=== PATIENT | female | born 2000 | race Caucasian/White ===

== ENCOUNTER 2023-11-23 05:36 | Day surgery (SDC) | payer BC, OTHER ==
[2023-11-17 16:26] LABS: BASOPHILS % (AUTO) 0.3 % (0-1); EOSINOPHILS # (AUTO) 0.1 X10'3 (0-0.9); EOSINOPHILS % (AUTO) 0.9 % (0-6); LYMPHOCYTES # (AUTO) 3.2 X10'3 (1.1-4.8); LYMPHOCYTES % (AUTO) 33.5 % (21-51); MEAN CORPUSCULAR HEMOGLOBIN 26.8 PG (27.0-31.0); MEAN CORPUSCULAR HGB CONC 33.5 g/dL (33.0-36.5); MONOCYTES # (AUTO) 0.6 X10'3 (0-0.9); MONOCYTES % (AUTO) 6.3 % (2-12); NEUTROPHILS # (AUTO) 5.6 X10'3 (1.8-7.7); PRE OP HEMATOCRIT 41.3 % (35.0-45.0); PRE OP HEMOGLOBIN 13.8 g/dL (12.0-16.0); PRE OP PLATELET COUNT 282 X10'3 (140-440); PRE OP WHITE BLOOD COUNT 9.5 10'3 (4.8-10.8); RED BLOOD COUNT 5.16 X10'6 (4.20-5.60); RED CELL DISTRIBUTION WIDTH 14.1 % (11.5-14.5)
[2023-11-17 16:38] LABS: ALBUMIN 4.1 G/DL (3.4-5.0); ALBUMIN/GLOBULIN RATIO 1.2 (1.1-1.5); ALKALINE PHOSPHATASE 40 IU/L (46-116); BLOOD UREA NITROGEN 11 MG/DL (7-18); BUN/CREATININE RATIO 16.7 (10.0-20.0); CALCIUM 8.9 MG/DL (8.5-10.1); CHLORIDE 102 MMOL/L (99-107); CREATININE 0.66 MG/DL (0.40-0.90); PRE OP ANION GAP 9 (8-16); PRE OP AST 43 U/L (10-37); PRE OP BILIRUB, TOTAL 0.3 MG/DL (0.0-1.0); PRE OP GLUCOSE 109 MG/DL (70-104); PRE OP POTASSIUM 3.7 MMOL/L (3.4-5.1); PRE OP SODIUM 140 MMOL/L (135-145); TOTAL CARBON DIOXIDE 29.1 MMOL/L (24-32); TOTAL PROTEIN 7.6 G/DL (6.4-8.2); eGFR > 90 ML/MIN
[2023-11-17 16:47] LABS: PRE OP ALT 93 U/L (30-65)
[2023-11-17 16:57] LABS: HCG SERUM QL NEGATIVE
[2023-11-23] VITALS (13 sets, daily range): BP systolic 107–129; BP diastolic 54–92; PULSE 103–132; RESP 12–21; TEMP 78.8–99.5; O2SAT 94–99
[~2023-11-23] VITALS: Ht 154.9 cm; Wt 78.8 kg
[~2023-11-23 05:36] MED LIST: DICY10CA88 PO; FAMO40TA8 PO; LEVO1TAB80 PO; LINA290C PO; SERT-433 PO
[2023-11-23] MEDS: famotidine 20mg tablet PO ONE (06:11)
[2023-11-23] MEDS: INDOCYANINE GREEN 25 MG/10 ML VIAL IV ONE (06:11)
[2023-11-23] MEDS: ringers solution, lacted 1,000 ML IV SCH (06:11)
[2023-11-23] MEDS: clindamycin-Cleocin 900mg/D5W 50 ML IV ONE (06:12)
[2023-11-23] MEDS ORDERED: BUPIVAcaine/PF 2.5mg/ml (0.25%) 10ml vial ONE (07:05)
[2023-11-23] MEDS ORDERED: LIDOcaine 1% 30ml preserv. free vial ONE (07:05)
[2023-11-23] MEDS ORDERED: midazolam 1 mg/ML 2ml injection ONE (07:13)
[2023-11-23] MEDS ORDERED: fentaNYL/PF 50MCG/1 ML 2ML syringe ONE (07:13)
[2023-11-23] MEDS ORDERED: propofol inj 20 ML IV ONE (07:14)
[2023-11-23] MEDS ORDERED: dexamethasone sod phosphate 4mg/ml inj. ONE (07:14)
[2023-11-23] MEDS ORDERED: ondansetron/PF 4mg/2ml inj ONE (07:14)
[2023-11-23] MEDS ORDERED: LIDOcaine 2% (20mg/ml) 5ml vial ONE (07:14)
[2023-11-23] MEDS ORDERED: rocuronium 10mg/ml inj IV ONE (07:15)
[2023-11-23] MEDS ORDERED: glycopyrrolate 0.2mg/ml inj ONE (07:15)
[2023-11-23] MEDS ORDERED: neostigmine methylsulfate 1 MG/ML 10ml vial ONE (07:15)
[2023-11-23] MEDS ORDERED: labetalol 20mg/4ml (5mg/ml) syringe IV PRN (07:30)
[2023-11-23] MEDS ORDERED: ondansetron/PF 4mg/2ml inj IV PRN (07:30)
[2023-11-23] MEDS ORDERED: hydrALAZINE 20mg/ml inj. IV PRN (07:30)
[2023-11-23] MEDS ORDERED: fentaNYL/PF 50MCG/1 ML 2ML syringe IV PRN ×2 (07:30)
[2023-11-23] MEDS ORDERED: morphine 4 MG/ML inj SYRINge IV PRN (07:30)
[2023-11-23] MEDS ORDERED: ringers solution, lacted 1,000 ML IV SCH (07:30)
[2023-11-23] MEDS ORDERED: sevoflurane 250ml liquid IH ONE (07:32)
[2023-11-23] MEDS ORDERED: acetaminophen 1,000mg/100ml IV 100 ML IV ONE (07:59)
[2023-11-23] MEDS: BUPIVAcaine 0.5% W/EPI /PF 10ml vial IJ ONE (08:09)
[2023-11-23] MEDS: LIDOcaine 1% 30ml preserv. free vial IJ ONE (08:10)
[2023-11-23] MEDS: morphine 2 MG/ML inj. syringe IV PRN (09:24)
[2023-11-23] MEDS: traMADol 50MG tablet PO PRN (09:52)
== END 2023-11-23 10:48 | disposition home or self-care (01) ==
LOC: PAS 05:36
PROVIDERS: ATTEND Surgery
DX: K81.1 Chronic cholecystitis (principal); K21.9 Gastro-esophageal reflux disease without esophagitis; F32.9 Major depressive disorder, single episode, unspecified; F41.9 Anxiety disorder, unspecified; E66.9 Obesity, unspecified; Z68.32 Body mass index [BMI] 32.0-32.9, adult; Z79.899 Other long term (current) drug therapy; Z88.1 Allergy status to other antibiotic agents; Z98.890 Other specified postprocedural states; Z83.3 Family history of diabetes mellitus; Z82.49 Family history of ischemic heart disease and other diseases of the circulatory system; Z82.61 Family history of arthritis; Z80.3 Family history of malignant neoplasm of breast; Z80.8 Family history of malignant neoplasm of other organs or systems; Z80.0 Family history of malignant neoplasm of digestive organs
CPT/HCPCS: 36415; 47563; 80053; 82948; 84703; 85025; J0131; J1100; J2250; J2270; J2405; J2704; J2710; J3010; J3490; J7030; J7120; S0020; S2900; Z7506; Z7508; Z7512; A4215; A4618; A7000